=== PATIENT | female | born 1940 | race Caucasian/White ===

== ENCOUNTER 2020-08-25 07:30 | Inpatient (IN) | payer OTHER ==
[~2020-08-25] VITALS: Ht 154.9 cm; Wt 105.8 kg
[~2020-08-25 07:30] MED LIST: CANA100T PO; CEFD300C37 PO; FURO-92 PO; INSU100I28 SQ-INSULIN; LIRA0.6P2 INJ; LISI40TA9 PO; MULT-91 PO; MVI; POTA20TA6 PO
--- NOTE | 2020-08-25 07:56 | NUR ---
PT BIB [facility] FOR INCREASING SOB OVER LAST 3 DAYS WITH HX OF COPD. PT HAS NOT GOTTEN COVID SHOT AND "WILL NEVER GET IT". PT WAS DIVERTED FROM ID TO [facility]. SHE RECEIVED DUONEB, ALB, AND SOLUMEDROL COMMUNICATIONS DESIGNER. SHE IS CURRENTLY ON HIGH NASAL CANNULA AT 50 LITERS AND HER BREATHING HAS RELAXED AND SHE APPEARS LESS ANXIOUS. SHE DENIES ANY COUGH, SORE THROAT, FEVER, OR BODY ACHES. PT ON MONITOR. LABS BEING DRAWN. PT APPROVED TALKING TO DAUGHTER, SHIRA ([phone]) WHO IS A NURSE, TO DISCUSS HER CONDITION.
[2020-08-25] MEDS ORDERED: SODIUM CHLORIDE FLUSH 10ML SYR IVF ONE (08:00)
[2020-08-25 08:09] LABS: BASOPHILS % (AUTO) 1 % (0-1); EOSINOPHILS % (AUTO) 1 % (1-7); LYMPHOCYTES % (AUTO) 7 % (22-44); MEAN CORPUSCULAR HGB CONC 33.4 g/dL (32.4-35.8); MONOCYTES % (AUTO) 12 % (2-9); NEUTROPHILS % (AUTO) 80 % (42-75); PLATELET COUNT 259 x10^3/uL (130-400); RED BLOOD COUNT 3.64 x10^6/uL (3.82-5.3); RED CELL DISTRIBUTION WIDTH 13.6 % (9.6-15.2)
[2020-08-25 08:23] LABS: ALBUMIN 2.9 g/dL (3.4-5.0); ANION GAP 6 mmol/L (5-15); CALCIUM 8.6 mg/dL (8.5-10.1); CHLORIDE 109 mmol/L (98-107)
[2020-08-25] MEDS ORDERED: ALBUTEROL 0.083% INH (08:24)
[2020-08-25] MEDS ORDERED: CARB-136 EACH EAR (08:24)
[2020-08-25] MEDS ORDERED: GABA100C PO (08:24)
[2020-08-25] MEDS ORDERED: TIOTROPIUM 2.5 MCG INH (08:24)
[2020-08-25] MEDS ORDERED: MULT-658 PO (08:24)
[2020-08-25] MEDS ORDERED: ASPI81TA45 PO (08:24)
[2020-08-25] MEDS ORDERED: GUAIFENESIN (08:24)
[2020-08-25] MEDS ORDERED: METO50TA82 PO (08:24)
[2020-08-25] MEDS ORDERED: TERBINAFINE 1% TP (08:24)
[2020-08-25] MEDS ORDERED: AMLO-150 PO (08:24)
[2020-08-25] MEDS ORDERED: BUDE10.26 INH (08:24)
[2020-08-25] MEDS ORDERED: HYDR-826 PO (08:24)
[2020-08-25] MEDS ORDERED: INSU100V8 SQ (08:24)
[2020-08-25] MEDS ORDERED: MAGN420T PO (08:24)
[2020-08-25] MEDS ORDERED: CHOL10003 PO (08:24)
[2020-08-25] MEDS ORDERED: DEXTROMETHORPHAN (08:24)
[2020-08-25] MEDS ORDERED: HYDR25TA6 PO (08:24)
[2020-08-25] MEDS ORDERED: CYAN500T18 PO (08:24)
[2020-08-25] MEDS ORDERED: PRAV40TA2 PO (08:24)
[2020-08-25] MEDS ORDERED: CALC-60 PO (08:24)
[2020-08-25 08:27] LABS: ALANINE AMINOTRANSFERASE 26 U/L (12-78); ALKALINE PHOSPHATASE 129 U/L (45-117); BILIRUBIN,TOTAL 0.7 mg/dL (0.2-1.0); CREATININE 1.66 mg/dL (0.55-1.02)
--- NOTE | 2020-08-25 08:59 | NUR ---
REPORT FROM LUCIO, ASSUME CARE OF PT AT THIS TIME.
[2020-08-25] MEDS ORDERED: CEFTRIAXONE 1,000 MG in DEXTROSE 5% 50 ML IVPB ONE (09:00)
[2020-08-25] MEDS ORDERED: DOXYCYCLINE 100 MG in DEXTROSE 5% 250 ML IV SCH (09:00)
--- NOTE | 2020-08-25 09:09 | NUR ---
CHART UP FOR MD VILLAGOMEZ. PT AWARE. REPOT TO CHRIST [place] RN.
--- NOTE | 2020-08-25 10:00 | NUR ---
PT SLEEPING, NAD. 2ND ANTIBIOTIC INFUSING. VSS/UPDATED IN COMPUTER. PINK SHEET COMPLETED/TO GEOTECHNICAL FIELD TECHNICIAN. CALL LIGHT WITHIN REACH.
[2020-08-25] MEDS ORDERED: BISACODYL 10 MG SUPP PR PRN (10:30)
[2020-08-25] MEDS ORDERED: FUROSEMIDE 40 MG/4 ML IV ONE (10:30)
[2020-08-25] MEDS ORDERED: OXYcodone IR 5MG TABLET PO PRN (10:30)
[2020-08-25] MEDS ORDERED: POLYETHYLENE GLYCOL 17 GM PACKET PO PRN (10:30)
[2020-08-25] MEDS ORDERED: ACETAMINOPHEN 325 MG TABLET PO PRN (10:30)
[2020-08-25] MEDS ORDERED: ONDANSETRON 2MG/ML, 2ML IVPush PRN (10:30)
[2020-08-25] MEDS ORDERED: TEMAZEPAM 15 MG CAPSULE PO PRN (10:30)
[2020-08-25] MEDS ORDERED: TIOTROPIUM 2.5 MCG INH SCH (10:30)
[2020-08-25] MEDS ORDERED: MELATONIN 5 MG TABLET PO PRN (10:30)
[2020-08-25] MEDS ORDERED: hydrALAzine 20 MG/ML, 1ML IVPush PRN (10:30)
[2020-08-25] MEDS ORDERED: LORazepam 2 MG/ML, 1ML IVPush PRN (10:30)
[2020-08-25] MEDS ORDERED: BUDESONIDE FORMOTEROL INH SCH (10:30)
[2020-08-25] MEDS ORDERED: DOCUSATE 100 MG CAPSULE PO PRN (10:30)
--- NOTE | 2020-08-25 10:47 | NUR ---
RAJANI [phone] Addendum: 08/25/20 at 1047 by ABAD MOLLY GERARD WOULD LIKE TO BE CALLED FIRST. [phone]
[2020-08-25] MEDS: INSULIN LISPRO 100 UNITS/ML, PEN SQ-INSULIN SCH ×3 (11:00→21:00)
--- NOTE | 2020-08-25 11:21 | NUR ---
REPORT TO PAT RN, PT READY FOR TRANSPORT. CALL FROM LAB, CRIT[facility] TROPONIN 0.140. CALL FROM CT REPORTING CREATININE AND GFR OUTSIDE OF LIMITS FOR CTA. DR LOMAX NOTIFIED. CT TO BE CHANGED TO NONCONTRAST PER DR LOMAX.
--- NOTE | 2020-08-25 11:49 | NUR ---
US AT BS.
--- NOTE | 2020-08-25 12:01 | NUR ---
CALL TO RT FOR TRANSPORT.
[2020-08-25] MEDS ORDERED: GUAIFENESIN/DM 100-10MG, 5ML UDC PO PRN (12:30)
[2020-08-25] MEDS ORDERED: ALBUTEROL SULFATE 2.5 MG/3 ML NPPB SCH (12:30)
[2020-08-25] MEDS ORDERED: ALBUTEROL/IPRATROPIUM 2.5MG/0.5MG, 3 ML NPPB SCH (13:30)
[2020-08-25 14:00] VITALS: BP 145/73
[2020-08-25] MEDS: CEFTRIAXONE 2 GM in DEXTROSE 5% 50 ML IVPB SCH (14:14)
[2020-08-25] MEDS: DEXAMETHASONE 4 MG/ML, 1ML IVPush SCH (14:31)
[2020-08-25] MEDS: LISINOPRIL 40 MG TABLET PO SCH (14:32)
[2020-08-25] MEDS: HYDROCHLOROTHIAZIDE 25 MG TABLET PO SCH (14:32)
[2020-08-25] MEDS: METOPROLOL TARTRATE 50 MG TAB PO SCH ×2 (14:32→22:30)
[2020-08-25] MEDS: ZINC SULFATE 220 MG CAPSULE PO SCH (14:32)
[2020-08-25] MEDS: MULTIVITAMIN 1 TABLET PO SCH (14:32)
[2020-08-25] MEDS: CHOLECALCIFEROL 5,000u TAB PO SCH (14:32)
[2020-08-25] MEDS: ASPIRIN 81 MG TABLET EC PO SCH (14:32)
[2020-08-25] MEDS: ENOXAPARIN 30 MG/0.3 ML SQ SCH (14:33)
[2020-08-25] MEDS: AMLODIPINE 5 MG TABLET PO SCH (14:33)
[2020-08-25] MEDS: ALBUTEROL/IPRATROPIUM 2.5MG/0.5MG, 3 ML NPPB SCH ×2 (15:00→19:42)
[2020-08-25] MEDS: AZITHROMYCIN 500 MG in SODIUM CHLORIDE 0.9% 250 ML IV SCH (16:07)
[2020-08-25] MEDS: ASCORBIC ACID 250 MG TAB PO SCH (16:48)
[2020-08-25] MEDS: BUDESONIDE 0.5 MG/2 ML INHA NPPB SCH (19:41)
[2020-08-25 19:45] VITALS: BP 137/61
[2020-08-25] MEDS ORDERED: INSULIN GLARGINE 100 UNITS/ML, PEN SQ-INSULIN SCH (21:00)
[2020-08-25] MEDS: PRAVASTATIN 40 MG TABLET PO SCH (22:30)
[2020-08-25] MEDS: FAMOTIDINE 20 MG TABLET PO SCH (22:30)
[2020-08-25] MEDS: GABAPENTIN 100 MG CAPSULE PO SCH (22:30)
[2020-08-25] MEDS: BUMETANIDE 0.25 MG/ML, 4ML IV SCH (22:31)
[2020-08-26 00:57] VITALS: BP 158/72
[2020-08-26] MEDS: ALBUTEROL/IPRATROPIUM 2.5MG/0.5MG, 3 ML NPPB SCH ×4 (02:39→21:00)
[2020-08-26 03:04] LABS: BASOPHILS % (AUTO) 0 % (0-1); EOSINOPHILS % (AUTO) 0 % (1-7); LYMPHOCYTES % (AUTO) 6 % (22-44); MEAN CORPUSCULAR HEMOGLOBIN 31.4 pg (27.0-34.8); MEAN CORPUSCULAR HGB CONC 33.8 g/dL (32.4-35.8); MEAN PLATELET VOLUME 8.5 fL (7.4-10.4); MONOCYTES % (AUTO) 2 % (2-9); NEUTROPHILS % (AUTO) 92 % (42-75); PLATELET COUNT 229 x10^3/uL (130-400); RED BLOOD COUNT 3.42 x10^6/uL (3.82-5.3); RED CELL DISTRIBUTION WIDTH 13.2 % (9.6-15.2)
[2020-08-26 03:11] LABS: ANION GAP 3 mmol/L (5-15); CALCIUM 8.4 mg/dL (8.5-10.1); CHLORIDE 109 mmol/L (98-107); CHOLESTEROL, TOTAL 112 mg/dL (140-239); CREATININE 2.33 mg/dL (0.55-1.02)
[2020-08-26 03:14] LABS: CHOL/HDL RATIO 2.2; HDL CHOL % 46 % (28-40); HDL CHOLESTEROL (DIRECT) 52 mg/dL (40-60); LDL CHOLESTEROL,CALCULATED 46 mg/dL (54-169); LDL/HDL RATIO 0.9 (0.5-3.0); TRIGLYCERIDES 69 mg/dL (50-200); VLDL CHOLESTEROL 14 mg/dL (0-25)
[2020-08-26 03:20] LABS: TROPONIN I 0.321 ng/mL (0.000-0.045)
[2020-08-26] MEDS: ENOXAPARIN 30 MG/0.3 ML SQ SCH (05:19)
[2020-08-26 06:36] LABS: MICROSCOPIC INDICATED
[2020-08-26 08:15] VITALS: BP 133/65
[2020-08-26] MEDS ORDERED: CEFTRIAXONE 1,000 MG IM ONE (09:00)
[2020-08-26] MEDS: BUDESONIDE 0.5 MG/2 ML INHA NPPB SCH ×2 (09:00→21:00)
[2020-08-26] MEDS: CYANOCOBALAMIN 1,000 MCG TABLET PO SCH (09:00)
[2020-08-26] MEDS: CHOLECALCIFEROL 5,000u TAB PO SCH (09:00)
[2020-08-26] MEDS: INSULIN LISPRO 100 UNITS/ML, PEN SQ-INSULIN SCH ×4 (10:25→21:26)
[2020-08-26] MEDS: ASCORBIC ACID 250 MG TAB PO SCH ×2 (10:27→17:00)
[2020-08-26] MEDS: MULTIVITAMIN 1 TABLET PO SCH (10:28)
[2020-08-26] MEDS: HYDROCHLOROTHIAZIDE 25 MG TABLET PO SCH (10:31)
[2020-08-26] MEDS: ZINC SULFATE 220 MG CAPSULE PO SCH (10:31)
[2020-08-26] MEDS: AMLODIPINE 5 MG TABLET PO SCH (10:31)
[2020-08-26] MEDS: METOPROLOL TARTRATE 50 MG TAB PO SCH ×2 (10:32→21:25)
[2020-08-26] MEDS: ASPIRIN 81 MG TABLET EC PO SCH (10:32)
[2020-08-26] MEDS: LISINOPRIL 40 MG TABLET PO SCH (10:33)
[2020-08-26] MEDS: BUMETANIDE 0.25 MG/ML, 4ML IV SCH ×2 (10:34→21:25)
[2020-08-26] MEDS: DEXAMETHASONE 4 MG/ML, 1ML IVPush SCH (10:35)
[2020-08-26] MEDS: AZITHROMYCIN 500 MG in SODIUM CHLORIDE 0.9% 250 ML IV SCH (10:35)
[2020-08-26] MEDS: CEFTRIAXONE 2 GM in DEXTROSE 5% 50 ML IVPB SCH (12:49)
[2020-08-26 14:35] VITALS: BP 112/65
[2020-08-26 18:37] VITALS: BP 135/64
[2020-08-26 21:23] VITALS: BP 168/76
[2020-08-26] MEDS: GABAPENTIN 100 MG CAPSULE PO SCH (21:25)
[2020-08-26] MEDS: FAMOTIDINE 20 MG TABLET PO SCH (21:25)
[2020-08-26] MEDS: PRAVASTATIN 40 MG TABLET PO SCH (21:25)
[2020-08-26] MEDS: INSULIN GLARGINE 100 UNITS/ML, PEN SQ-INSULIN SCH (21:26)
[2020-08-27 00:57] VITALS: BP 146/69
[2020-08-27] MEDS: ALBUTEROL/IPRATROPIUM 2.5MG/0.5MG, 3 ML NPPB SCH ×4 (03:00→19:00)
[2020-08-27] MEDS: ENOXAPARIN 30 MG/0.3 ML SQ SCH (05:20)
[2020-08-27 06:53] VITALS: BP 144/65
[2020-08-27] MEDS ORDERED: ASCORBIC ACID 500 MG TABLET ONE (08:25)
[2020-08-27] MEDS: ASCORBIC ACID 250 MG TAB PO SCH ×2 (08:32→17:00)
[2020-08-27] MEDS: ZINC SULFATE 220 MG CAPSULE PO SCH (08:32)
[2020-08-27] MEDS: MULTIVITAMIN 1 TABLET PO SCH (08:33)
[2020-08-27] MEDS: CHOLECALCIFEROL 5,000u TAB PO SCH (08:33)
[2020-08-27] MEDS: CYANOCOBALAMIN 1,000 MCG TABLET PO SCH (08:33)
[2020-08-27] MEDS: ASPIRIN 81 MG TABLET EC PO SCH (08:34)
[2020-08-27] MEDS: MAGNESIUM OXIDE 400 MG TABLET PO SCH (08:34)
[2020-08-27] MEDS: AMLODIPINE 5 MG TABLET PO SCH (08:35)
[2020-08-27] MEDS: BUMETANIDE 0.25 MG/ML, 4ML IV SCH ×2 (08:36→21:10)
[2020-08-27] MEDS: INSULIN LISPRO 100 UNITS/ML, PEN SQ-INSULIN SCH ×4 (08:36→21:22)
[2020-08-27] MEDS: METOPROLOL TARTRATE 50 MG TAB PO SCH ×2 (08:36→21:10)
[2020-08-27] MEDS: BUDESONIDE 0.5 MG/2 ML INHA NPPB SCH ×2 (08:45→19:01)
[2020-08-27 09:01] LABS: ANION GAP 6 mmol/L (5-15); CALCIUM 9.3 mg/dL (8.5-10.1); CHLORIDE 107 mmol/L (98-107); CREATININE 2.32 mg/dL (0.55-1.02)
[2020-08-27] MEDS: AZITHROMYCIN 500 MG in SODIUM CHLORIDE 0.9% 250 ML IV SCH (10:40)
[2020-08-27] MEDS: CEFTRIAXONE 2 GM in DEXTROSE 5% 50 ML IVPB SCH (12:22)
[2020-08-27 12:25] VITALS: BP 128/69
[2020-08-27 18:44] VITALS: BP 148/67
[2020-08-27] MEDS: PRAVASTATIN 40 MG TABLET PO SCH (21:09)
[2020-08-27] MEDS: FAMOTIDINE 20 MG TABLET PO SCH (21:10)
[2020-08-27] MEDS: GABAPENTIN 100 MG CAPSULE PO SCH (21:10)
[2020-08-27] MEDS: INSULIN GLARGINE 100 UNITS/ML, PEN SQ-INSULIN SCH (21:22)
[2020-08-27 23:21] VITALS: BP 151/66
[2020-08-28] MEDS: ALBUTEROL/IPRATROPIUM 2.5MG/0.5MG, 3 ML NPPB SCH ×4 (02:21→19:07)
[2020-08-28] MEDS: ENOXAPARIN 30 MG/0.3 ML SQ SCH (05:25)
[2020-08-28] MEDS: BUDESONIDE 0.5 MG/2 ML INHA NPPB SCH ×2 (06:40→19:07)
[2020-08-28] MEDS: CHOLECALCIFEROL 5,000u TAB PO SCH (08:05)
[2020-08-28] MEDS: BUMETANIDE 0.25 MG/ML, 4ML IV SCH ×2 (08:05→21:55)
[2020-08-28] MEDS: AMLODIPINE 5 MG TABLET PO SCH (08:05)
[2020-08-28] MEDS: ASCORBIC ACID 250 MG TAB PO SCH (08:05)
[2020-08-28] MEDS: ASPIRIN 81 MG TABLET EC PO SCH (08:06)
[2020-08-28] MEDS: CYANOCOBALAMIN 1,000 MCG TABLET PO SCH (08:06)
[2020-08-28] MEDS: METOPROLOL TARTRATE 50 MG TAB PO SCH ×2 (08:06→21:55)
[2020-08-28] MEDS: MAGNESIUM OXIDE 400 MG TABLET PO SCH (08:06)
[2020-08-28] MEDS: ZINC SULFATE 220 MG CAPSULE PO SCH (08:06)
[2020-08-28] MEDS: MULTIVITAMIN 1 TABLET PO SCH (08:06)
[2020-08-28] MEDS: INSULIN LISPRO 100 UNITS/ML, PEN SQ-INSULIN SCH ×4 (08:07→21:59)
[2020-08-28 08:15] VITALS: BP 152/73
[2020-08-28] MEDS ORDERED: methylPREDNISolone SOD SUCC 40 MG/ML IV SCH (09:30)
[2020-08-28] MEDS: AZITHROMYCIN 500 MG in SODIUM CHLORIDE 0.9% 250 ML IV SCH (10:17)
[2020-08-28 11:21] LABS: ANION GAP 8 mmol/L (5-15); CALCIUM 8.7 mg/dL (8.5-10.1); CHLORIDE 108 mmol/L (98-107); CREATININE 2.25 mg/dL (0.55-1.02)
[2020-08-28] MEDS: CEFTRIAXONE 2 GM in DEXTROSE 5% 50 ML IVPB SCH (12:09)
[2020-08-28 14:04] VITALS: BP 131/73
[2020-08-28 14:45] VITALS: BP 148/63
[2020-08-28 18:41] VITALS: BP 154/70
[2020-08-28] MEDS: PRAVASTATIN 40 MG TABLET PO SCH (21:55)
[2020-08-28] MEDS: FAMOTIDINE 20 MG TABLET PO SCH (21:56)
[2020-08-28] MEDS: GABAPENTIN 100 MG CAPSULE PO SCH (21:56)
[2020-08-28] MEDS: INSULIN GLARGINE 100 UNITS/ML, PEN SQ-INSULIN SCH (21:58)
[2020-08-28 22:07] VITALS: BP 170/69
[2020-08-29 01:37] VITALS: BP 152/67
[2020-08-29] MEDS: ALBUTEROL/IPRATROPIUM 2.5MG/0.5MG, 3 ML NPPB SCH ×4 (03:24→22:05)
[2020-08-29 05:30] LABS: BASOPHILS % (AUTO) 0 % (0-1); EOSINOPHILS % (AUTO) 0 % (1-7); LYMPHOCYTES % (AUTO) 6 % (22-44); MEAN CORPUSCULAR HEMOGLOBIN 30.6 pg (27.0-34.8); MEAN CORPUSCULAR HGB CONC 33.3 g/dL (32.4-35.8); MEAN PLATELET VOLUME 8.3 fL (7.4-10.4); MONOCYTES % (AUTO) 4 % (2-9); NEUTROPHILS % (AUTO) 91 % (42-75); PLATELET COUNT 291 x10^3/uL (130-400); RED BLOOD COUNT 3.83 x10^6/uL (3.82-5.3); RED CELL DISTRIBUTION WIDTH 13.1 % (9.6-15.2)
[2020-08-29] MEDS: ENOXAPARIN 30 MG/0.3 ML SQ SCH (05:35)
[2020-08-29 05:37] LABS: ANION GAP 5 mmol/L (5-15); CHLORIDE 107 mmol/L (98-107)
[2020-08-29 05:38] LABS: CREATININE 1.83 mg/dL (0.55-1.02)
[2020-08-29] MEDS: BUDESONIDE 0.5 MG/2 ML INHA NPPB SCH ×2 (07:21→22:05)
[2020-08-29 08:25] VITALS: BP 183/77
[2020-08-29] MEDS: ASPIRIN 81 MG TABLET EC PO SCH (08:30)
[2020-08-29] MEDS: MAGNESIUM OXIDE 400 MG TABLET PO SCH (08:31)
[2020-08-29] MEDS: AMLODIPINE 5 MG TABLET PO SCH (08:31)
[2020-08-29] MEDS: MULTIVITAMIN 1 TABLET PO SCH (08:31)
[2020-08-29] MEDS: CYANOCOBALAMIN 1,000 MCG TABLET PO SCH (08:31)
[2020-08-29] MEDS: CHOLECALCIFEROL 5,000u TAB PO SCH (08:32)
[2020-08-29] MEDS: METOPROLOL TARTRATE 50 MG TAB PO SCH ×2 (08:32→21:47)
[2020-08-29] MEDS: INSULIN LISPRO 100 UNITS/ML, PEN SQ-INSULIN SCH ×4 (08:33→21:49)
[2020-08-29] MEDS: BUMETANIDE 0.25 MG/ML, 4ML IV SCH ×2 (08:34→21:46)
[2020-08-29] MEDS: AZITHROMYCIN 500 MG in SODIUM CHLORIDE 0.9% 250 ML IV SCH (10:44)
[2020-08-29] MEDS: CEFTRIAXONE 2 GM in DEXTROSE 5% 50 ML IVPB SCH (11:54)
[2020-08-29 13:54] VITALS: BP 150/54
[2020-08-29 20:38] VITALS: BP 153/70
[2020-08-29] MEDS: GABAPENTIN 100 MG CAPSULE PO SCH (21:46)
[2020-08-29] MEDS: FAMOTIDINE 20 MG TABLET PO SCH (21:46)
[2020-08-29] MEDS: PRAVASTATIN 40 MG TABLET PO SCH (21:47)
[2020-08-29] MEDS: INSULIN GLARGINE 100 UNITS/ML, PEN SQ-INSULIN SCH (21:48)
[2020-08-30 01:21] VITALS: BP 138/75
[2020-08-30] MEDS: ALBUTEROL/IPRATROPIUM 2.5MG/0.5MG, 3 ML NPPB SCH ×4 (04:20→21:00)
[2020-08-30] MEDS: ENOXAPARIN 30 MG/0.3 ML SQ SCH (05:35)
[2020-08-30 06:02] LABS: ANION GAP 6 mmol/L (5-15); CALCIUM 9.1 mg/dL (8.5-10.1); CHLORIDE 106 mmol/L (98-107); CREATININE 2.04 mg/dL (0.55-1.02)
[2020-08-30 07:10] VITALS: BP 148/76
[2020-08-30] MEDS: ASPIRIN 81 MG TABLET EC PO SCH (08:32)
[2020-08-30] MEDS: AMLODIPINE 5 MG TABLET PO SCH (08:32)
[2020-08-30] MEDS: CHOLECALCIFEROL 5,000u TAB PO SCH (08:33)
[2020-08-30] MEDS: METOPROLOL TARTRATE 50 MG TAB PO SCH ×2 (08:33→21:11)
[2020-08-30] MEDS: CYANOCOBALAMIN 1,000 MCG TABLET PO SCH (08:33)
[2020-08-30] MEDS: MULTIVITAMIN 1 TABLET PO SCH (08:34)
[2020-08-30] MEDS: BUMETANIDE 0.25 MG/ML, 4ML IV SCH ×2 (08:36→21:18)
[2020-08-30] MEDS: INSULIN LISPRO 100 UNITS/ML, PEN SQ-INSULIN SCH ×4 (08:41→21:12)
[2020-08-30] MEDS: BUDESONIDE 0.5 MG/2 ML INHA NPPB SCH ×2 (09:55→21:00)
[2020-08-30] MEDS: AZITHROMYCIN 500 MG in SODIUM CHLORIDE 0.9% 250 ML IV SCH (11:02)
[2020-08-30] MEDS: CEFTRIAXONE 2 GM in DEXTROSE 5% 50 ML IVPB SCH (12:25)
[2020-08-30 13:27] VITALS: BP 150/67
[2020-08-30 18:39] VITALS: BP 144/63
[2020-08-30] MEDS: PRAVASTATIN 40 MG TABLET PO SCH (21:11)
[2020-08-30] MEDS: FAMOTIDINE 20 MG TABLET PO SCH (21:11)
[2020-08-30] MEDS: GABAPENTIN 100 MG CAPSULE PO SCH (21:11)
[2020-08-30] MEDS: INSULIN GLARGINE 100 UNITS/ML, PEN SQ-INSULIN SCH (21:13)
[2020-08-31 01:03] VITALS: BP 159/74
[2020-08-31] MEDS: ALBUTEROL/IPRATROPIUM 2.5MG/0.5MG, 3 ML NPPB SCH ×2 (03:00→07:05)
[2020-08-31] MEDS: ENOXAPARIN 30 MG/0.3 ML SQ SCH (05:26)
[2020-08-31] MEDS: BUDESONIDE 0.5 MG/2 ML INHA NPPB SCH (07:05)
[2020-08-31 07:30] VITALS: BP 150/65
[2020-08-31] MEDS: ASPIRIN 81 MG TABLET EC PO SCH (08:32)
[2020-08-31] MEDS: MULTIVITAMIN 1 TABLET PO SCH (08:32)
[2020-08-31] MEDS: CYANOCOBALAMIN 1,000 MCG TABLET PO SCH (08:33)
[2020-08-31] MEDS: METOPROLOL TARTRATE 50 MG TAB PO SCH (08:33)
[2020-08-31] MEDS: CHOLECALCIFEROL 5,000u TAB PO SCH (08:34)
[2020-08-31] MEDS: MAGNESIUM OXIDE 400 MG TABLET PO SCH (08:34)
[2020-08-31] MEDS: AMLODIPINE 5 MG TABLET PO SCH (08:34)
[2020-08-31] MEDS: BUMETANIDE 0.25 MG/ML, 4ML IV SCH (08:35)
[2020-08-31] MEDS: INSULIN LISPRO 100 UNITS/ML, PEN SQ-INSULIN SCH ×2 (08:43→11:58)
[2020-08-31] MEDS: AZITHROMYCIN 500 MG in SODIUM CHLORIDE 0.9% 250 ML IV SCH (10:43)
[2020-08-31] MEDS ORDERED: PRED20TA PO (11:32)
[2020-08-31] MEDS: CEFTRIAXONE 2 GM in DEXTROSE 5% 50 ML IVPB SCH (11:49)
[2020-08-31 13:20] VITALS: BP 165/67
== END 2020-08-31 15:40 | disposition home health service (06) | DRG 291 ==
LOC: ED 09:40 → EDIP 10:18 → 5SO 11:40 → 4WST 08-28 14:33
PROVIDERS: ADMIT Internal Medicine; ATTEND Hospitalist
PROC: 5A0945A Assistance with Respiratory Ventilation, 24-96 Consecutive Hours, High Flow/Velocity Cannula (ICD-10-PCS; principal; 2020-08-25)
DX: I13.0 Hypertensive heart and chronic kidney disease with heart failure and stage 1 through stage 4 chronic kidney disease, or unspecified chronic kidney disease (principal); J96.21 Acute and chronic respiratory failure with hypoxia; N17.0 Acute kidney failure with tubular necrosis; I50.33 Acute on chronic diastolic (congestive) heart failure; J98.11 Atelectasis; J44.1 Chronic obstructive pulmonary disease with (acute) exacerbation; Z68.41 Body mass index [BMI] 40.0-44.9, adult; N18.30 Chronic kidney disease, stage 3 unspecified; E11.22 Type 2 diabetes mellitus with diabetic chronic kidney disease; E11.65 Type 2 diabetes mellitus with hyperglycemia; E66.9 Obesity, unspecified; E78.5 Hyperlipidemia, unspecified; E87.5 Hyperkalemia; Z20.822 Contact with and (suspected) exposure to COVID-19; Z66 Do not resuscitate; Z87.891 Personal history of nicotine dependence; Z99.81 Dependence on supplemental oxygen; Z90.49 Acquired absence of other specified parts of digestive tract; Z88.0 Allergy status to penicillin; Z88.1 Allergy status to other antibiotic agents
CPT/HCPCS: 36415; 36600; 71045; 71250; 76770; 80048; 80053; 80061; 81001; 82803; 82962; 83036; 83605; 83735; 83880; 84100; 84484; 85025; 85379; 87040; 87086; 87635; 93005; 93306; 93970; 94640; 99291; G0378; J0456; J0696; J1100; J1650; J1940; J7060; J7626; U0005; J1815; J2920; J7050; J7512; U0003